=== PATIENT | male | born 1990 | race Caucasian/White ===

== ENCOUNTER 2018-11-14 12:13 | Emergency (ER) | payer MEDICAID ==
[~2018-11-14] VITALS: Ht 172.7 cm; Wt 74.8 kg
[2018-11-14 12:19] VITALS: BP_SYST 130
[2018-11-14] MEDS ORDERED: DEXAMETHASONE SOD PHOSPHATE 10 MG/ML VIAL IM ONE (13:15)
[2018-11-14] MEDS ORDERED: KETOROLAC TROMETHAMINE 60 MG/2 ML VIAL IM ONE (13:15)
== END 2018-11-14 13:45 | disposition home or self-care (01) ==
LOC: SED 12:13
DX: M54.41 Lumbago with sciatica, right side (principal); F17.210 Nicotine dependence, cigarettes, uncomplicated; Z88.0 Allergy status to penicillin
CPT/HCPCS: 96372; 99283; J1100; J1885

== ENCOUNTER 2019-07-01 17:54 | Emergency (ER) | payer MEDICAID ==
[~2019-07-01] VITALS: Ht 175.3 cm; Wt 65.8 kg
[2019-07-01 18:06] VITALS: BP_SYST 145
[2019-07-01] MEDS ORDERED: cefTRIAXone 1 GM in LIDOCAINE 1%, 20 ML MDV 2.1 ML IM ONE (19:00)
[2019-07-01 19:07] VITALS: BP_SYST 139
== END 2019-07-01 19:11 | disposition home or self-care (01) ==
LOC: SED 17:54
DX: S60.361A Insect bite (nonvenomous) of right thumb, initial encounter (principal); L03.113 Cellulitis of right upper limb; Z88.0 Allergy status to penicillin; X58.XXXA Exposure to other specified factors, initial encounter; Y93.89 Activity, other specified; Y92.89 Other specified places as the place of occurrence of the external cause; Y99.8 Other external cause status
CPT/HCPCS: 96372; 99283; J0696; J2001